=== PATIENT | female | born 1995 | race Caucasian/White ===

== ENCOUNTER 2024-02-15 11:24 | Day surgery (SDC) | payer BC ==
[~2024-02-15 11:24] MED LIST: Albuterol 0.083% 2.5 MG/3 ML Neb Soln NEB PRN; HYDROmorphone 1 MG/ML Syringe IVPUSH PRN; Metoclopramide 10 MG/2 ML SDV IVPUSH PRN; Morphine 2 MG/ML SYRINGE IVPUSH PRN; Naloxone 0.4 MG/ML SDV IVPUSH PRN; Ondansetron 4 MG/2 ML SDV IVPUSH PRN; droPERidol 5 MG/2 ML SDV IVPUSH PRN; fentaNYL 50 MCG/ML SDV IVPUSH PRN
[2024-02-15] MEDS ORDERED: Ondansetron 4 MG/2 ML SDV ONE (11:49)
[2024-02-15] MEDS ORDERED: Dexamethasone 4 MG/ML 5 ML MDV ONE (11:49)
[2024-02-15] MEDS ORDERED: Ketorolac 30 MG/ML SDV ONE (11:49)
[2024-02-15] MEDS ORDERED: propofoL 50 ML ONE (11:49)
[2024-02-15] MEDS ORDERED: Lidocaine 1% 5 ML VIAL ONE (11:51)
[2024-02-15] MEDS ORDERED: fentaNYL 100 MCG/2 ML SDV ONE (11:51)
[2024-02-15] MEDS ORDERED: Lidocaine 1% with EPINEPHrine 1:100,000 10 ML MDV ONE (11:53)
[2024-02-15] MEDS: Lactated Ringers 1,000 ML IV SCH (12:24)
[2024-02-15] MEDS ORDERED: Acetic Acid 3% Solution 500 ML Bottle ONE (12:27)
[2024-02-15] MEDS ORDERED: Iodine/Potassium Iodide 5% Solution 14 ML Bottle ONE (12:27)
[2024-02-15] MEDS ORDERED: Ferric Subsulfate Topical Soln 8 GM (8 ML) Bottle ONE (12:27)
[2024-02-15] MEDS: Scopalamine 1mg/3day Transdermal Patch TOP ONE (12:38)
[2024-02-15] MEDS ORDERED: Glycopyrrolate 0.2 MG/ML SDV ONE (13:20)
== END 2024-02-15 14:35 | disposition home or self-care (01) ==
LOC: MW.SDS 11:24
PROVIDERS: ATTEND Obstetrics & Gynecology
DX: D06.9 Carcinoma in situ of cervix, unspecified (principal); F32.A Depression, unspecified; Z79.899 Other long term (current) drug therapy
CPT/HCPCS: 57522; 81025; A9270; J1100; J1596; J1885; J2405; J2704; J3010; J7120; 00940; J3490

== ENCOUNTER 2024-07-20 10:23 | Emergency (ER) | payer BC ==
[2024-07-20 13:32] LABS: BASOPHILS ABSOLUTE AUTO 0.01 K/uL (0.00-0.20); BASOPHILS PERCENT AUTO 0.1 % (0.0-1.0); EOSINOPHILS ABSOLUTE AUTO 0.02 K/uL (0.00-0.45); EOSINOPHILS PERCENT AUTO 0.2 % (0.0-6.0); HEMATOCRIT 45.6 % (37.0-47.0); HEMOGLOBIN 15.4 g/dL (12.0-16.0); IMMATURE GRAN ABSOLUTE AUTO 0.01 K/uL (0.00-0.05); IMMATURE GRAN PERCENT AUTO 0.1 % (0.0-0.4); LYMPHOCYTES ABSOLUTE AUTO 0.78 K/uL (1.00-4.80); LYMPHOCYTES PERCENT AUTO 6.5 % (24.0-44.0); MEAN CORPUSCULAR HEMOGLOBIN 28.1 pg (28.0-32.0); MEAN CORPUSCULAR HGB CONC 33.8 g/dL (32.0-36.0); MEAN CORPUSCULAR VOLUME 83.1 fL (83.0-99.0); MEAN PLATELET VOLUME 9.5 fL (9.4-12.3); MONOCYTES ABSOLUTE AUTO 0.27 K/uL (0.00-0.80); MONOCYTES PERCENT AUTO 2.3 % (0.0-8.0); NEUTROPHILS ABSOLUTE AUTO 10.87 K/uL (1.80-7.70); NEUTROPHILS PERCENT AUTO 90.8 % (41.0-71.0); PLATELET COUNT,PLT 283 K/uL (150-400); RED BLOOD CELL COUNT 5.49 M/uL (4.10-5.30); WHITE BLOOD CELL COUNT,WBC 11.96 K/uL (3.9-11.3)
[2024-07-20] MEDS: Sodium Chloride 0.9% 1,000 ML IV ONE (13:41)
[2024-07-20] MEDS: Dicyclomine 10 MG Cap PO ONE (13:41)
[2024-07-20] MEDS: Ondansetron 4 MG/2 ML SDV IVPUSH ONE (13:41)
[2024-07-20 14:09] LABS: A/G RATIO 0.8 (0.9-1.6); ALBUMIN 3.8 g/dL (3.4-5.0); BILIRUBIN DIRECT 0.1 mg/dL (0.0-0.5); BILIRUBIN INDIRECT 0.3; BILIRUBIN TOTAL 0.4 mg/dL (0.2-1.0); CALCIUM 9.2 mg/dL (8.5-10.1); CARBON DIOXIDE,CO2 23.9 mmol/L (21.0-32.0); CREATININE 0.8 mg/dL (0.6-1.0); EST CRCL DRUG DOSING (CG) 92.53 mL/min; POTASSIUM,K 4.1 mmol/L (3.5-5.1); PROTEIN TOTAL,TP 8.8 g/dL (6.4-8.2)
== END 2024-07-20 14:48 | disposition home or self-care (01) ==
LOC: MW.ED 10:23
DX: K52.9 Noninfective gastroenteritis and colitis, unspecified (principal); Z90.49 Acquired absence of other specified parts of digestive tract; Z79.899 Other long term (current) drug therapy; Z75.8 Other problems related to medical facilities and other health care
CPT/HCPCS: 36415; 80048; 80076; 83690; 85025; 87428; 96361; 96374; 99284; A9270; J2405; J7030